=== PATIENT | male | born 1995 | race Caucasian/White ===

== ENCOUNTER 2016-12-19 13:54 | Emergency (ER) | payer SELFPAY ==
[~2016-12-19] VITALS: Ht 172.7 cm; Wt 95.0 kg
[~2016-12-19 13:54] MED LIST: EPIN1INJ33 IM; MULT-506 PO
[2016-12-19 13:55] VITALS: Ht 172.7 cm; Wt 95.0 kg
[2016-12-19] MEDS ORDERED: MoRPHine SULFATE 4 MG/ML 1 ML CARP\\VIAL IV STA (14:10)
[2016-12-19] MEDS ORDERED: ONDANSETRON INJ 2 MG/ML 2 ML VIAL IV STA (14:10)
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
[2016-12-19] MEDS ORDERED: MoRPHine SULFATE 4 MG/ML 1 ML CARP\\VIAL IV ONE (15:30)
[2016-12-19] MEDS ORDERED: IBUP-1427 PO (15:33)
[2016-12-19] MEDS ORDERED: HYDR-5688 PO (15:33)
[2016-12-19 15:42] VITALS: BP 112/77; PULSE 95; TEMP 37.4; O2SAT 96
== END 2016-12-19 15:43 | disposition home or self-care (01) ==
LOC: C.EDB 13:56 → C.EDA 15:43
DX: S42.022A Displaced fracture of shaft of left clavicle, initial encounter for closed fracture (principal); Z83.79 Family history of other diseases of the digestive system; V86.59XA Driver of other special all-terrain or other off-road motor vehicle injured in nontraffic accident, initial encounter; F17.200 Nicotine dependence, unspecified, uncomplicated